=== PATIENT | male | born 1990 | race Hispanic/Latino ===

== ENCOUNTER 2019-09-06 05:29 | Emergency (ER) | payer SELFPAY ==
[2019-09-06] MEDS ORDERED: KETOROLAC TROMETHAMINE 60 MG/2 ML VIAL ONE (05:54)
[2019-09-06] MEDS ORDERED: AMOXICILLIN 500 MG CAPSULE PO ONE (06:00)
== END 2019-09-06 06:11 | disposition home or self-care (01) ==
LOC: EDH 05:29
DX: K02.9 Dental caries, unspecified (principal)
CPT/HCPCS: 96372; 99283; J1885